=== PATIENT | female | born 1985 | race Caucasian/White ===

== ENCOUNTER 2022-02-12 11:20 | Outpatient (REF) | payer OTHER, SELFPAY | END 2022-02-12 11:21 | disposition home or self-care (01) | LOC: HO.LAB 11:20 | PROVIDERS: Visit Provider Nurse Practitioner Family | DX: Z20.822 Contact with and (suspected) exposure to COVID-19 (principal); J02.9 Acute pharyngitis, unspecified; R05.9 Cough, unspecified | CPT/HCPCS: U0003; U0005 ==